=== PATIENT | female | born 1995 | race American Indian/Alaskan Native ===

== ENCOUNTER 2016-09-16 15:54 | Emergency (ER) | payer SELFPAY ==
--- NOTE | 2016-09-16 16:09 | Emergency Department Report ---
Chief Complaint: Skin/Abscess/Foreign Body Stated Complaint: LEFT LEG PAIN Time Seen by Provider: 09/16/16 16:06 - HPI History of Present Illness: PT c/o bump to L buttocks x 6 days PT states it has been draining - ROS Review of Systems: -fever - chill - nausea - vomiting - Exam Physical Exam: PT looks well, non toxic. MSE screening note: Focused history and physical exam performed. Due to findings the following was ordered: room for exam ED Disposition for MSE Condition: Stable
[2016-09-16 16:13] VITALS: BP 132/89
[2016-09-16] MEDS ORDERED: MARCAINE-EPI 0.5%-1:200,000 INFILTRATI ONE (17:24)
[2016-09-16] MEDS ORDERED: MOTRIN PO ONE (17:24)
[2016-09-16] MEDS ORDERED: BOOSTRIX IM ONE (17:52)
--- NOTE | 2016-09-16 19:05 | Emergency Department Report ---
Entered by PUSHPA JENNINGS, acting as scribe for ANASTASIYA BERMAN NP. - General Chief complaint: Skin/Abscess/Foreign Body Stated complaint: LEFT LEG PAIN Time Seen by Provider: 09/16/16 16:06 Source: patient Mode of arrival: Ambulatory Limitations: No Limitations - History of Present Illness Initial comments: This is a 21 y/o female, nontoxic, well nourished in appearance, no acute signs of distress presents with an area of boil to the left buttocks region that started 6 days and has gradually worsened since onset. Sx include noted minimal pus and drainage but pt denies n/v, fever, chills, SWEET, abd pain, chest pain, SOB , numbness or tingling. Pt notes taking ibuprofen [employer] today. She states using a warm rag to the affected area relieving some of the pressure and drainage. No additional Sx. NKDA. MOE complaint: abscess/boil -: days(s) (6) Tetanus Up to Date: no Location: buttocks Severity: mild Severity scale (0 -10): 4 Quality: constant Consistency: constant Improves with: none Worsens with: none Context: none Associated symptoms: denies other symptoms, other (drainage) Treatments Prior to Arrival: none - Related Data Previous Rx's Medication Instructions Recorded Last Taken Type Cephalexin [Keflex] 500 mg PO Q8HR 5 Days 09/16/16 Unknown Rx Ibuprofen [Motrin 600 MG tab] 600 mg PO Q8H PRN #15 tablet 09/16/16 Unknown Rx Abscess Boil HPI - HPI Chief Complaint: Skin/Abscess/Foreign Body Stated Complaint: LEFT LEG PAIN Time Seen by Provider: 09/16/16 16:06 Home Medications: Previous Rx's Medication Instructions Recorded Last Taken Type Cephalexin [Keflex] 500 mg PO Q8HR 5 Days 09/16/16 Unknown Rx Ibuprofen [Motrin 600 MG tab] 600 mg PO Q8H PRN #15 tablet 09/16/16 Unknown Rx ED Review of Systems Comment: All other systems reviewed and negative Constitutional: denies: chills, fever Eyes: denies: eye pain, eye discharge, vision change ENT: denies: ear pain, throat pain Respiratory: denies: cough, shortness of breath, wheezing Cardiovascular: denies: chest pain, palpitations Endocrine: no symptoms reported Gastrointestinal: denies: abdominal pain, nausea, diarrhea Genitourinary: denies: urgency, dysuria, discharge Musculoskeletal: denies: back pain, joint swelling, arthralgia Skin: other (area of boil with fluctuance on left buttocks region). denies: rash, lesions Neurological: denies: headache, weakness, paresthesias Psychiatric: denies: anxiety, depression Hematological/Lymphatic: denies: easy bleeding, easy bruising ED Past Medical Hx - Past Medical History Previous Medical History?: No - Surgical History Past Surgical History?: No - Social History Smoking Status: Never Smoker Substance Use Type: Marijuana - Medications Home Medications: Home Medications Medication Instructions Recorded Confirmed Last Taken Type Cephalexin [Keflex] 500 mg PO Q8HR 5 Days 09/16/16 Unknown Rx Ibuprofen [Motrin 600 MG tab] 600 mg PO Q8H PRN #15 tablet 09/16/16 Unknown Rx ED Physical Exam - General Limitations: No Limitations General appearance: alert, in no apparent distress - Head Head exam: Present: atraumatic, normocephalic - Eye Eye exam: Present: normal appearance, PERRL, EOMI Pupils: Present: normal accommodation - ENT ENT exam: Present: normal exam, normal orophraynx, mucous membranes moist, TM's normal bilaterally, normal external ear exam. Absent: mucous membranes dry - Neck Neck exam: Present: normal inspection, full ROM. Absent: tenderness, meningismus, lymphadenopathy, thyromegaly - Respiratory Respiratory exam: Present: normal lung sounds bilaterally. Absent: respiratory distress, wheezes, rales, rhonchi, stridor - Cardiovascular Cardiovascular Exam: Present: regular rate, normal rhythm, normal heart sounds. Absent: bradycardia, tachycardia, irregular rhythm, systolic murmur, diastolic murmur, rubs, gallop - GI/Abdominal GI/Abdominal exam: Present: soft, normal bowel sounds. Absent: distended, tenderness, guarding, rebound, rigid, diminished bowel sounds, mass, bruit - Extremities Exam Extremities exam: Present: normal inspection, full ROM, normal capillary refill. Absent: tenderness, pedal edema, joint swelling, calf tenderness - Back Exam Back exam: Present: normal inspection, full ROM. Absent: tenderness, CVA tenderness (R), CVA tenderness (L), muscle spasm, paraspinal tenderness, vertebral tenderness, rash noted - Neurological Exam Neurological exam: Present: alert, oriented X3, CN II-XII intact, normal gait, reflexes normal. Absent: abnormal gait, motor sensory deficit - Psychiatric Psychiatric exam: Present: normal affect, normal mood - Skin Skin exam: Present: warm, dry, intact, normal color, other (4 cm area of abscess with fluctuance on the left buttocks region. ) ED Course Vital Signs 09/16/16 16:08 Temperature 98.2 F Pulse Rate 106 H Respiratory 18 Rate Blood Pressure 132/89 O2 Sat by Pulse 100 Oximetry - I & D Medial Buttocks Type of Procedure: Complex Site: Medial left buttocks Blade Size: 11 I & D Procedure: betadine prep, sterile drapes applied, sterile dressing applied Progress: Under sterile procedure, I used Betadine to cleanse the area. I then used 4 x 4 to try and clean the area. I used 25-gauge 5/8 hypo-to inject 0.5% Marcaine with epi 1-200,000 with total volume of 6 mL. I then used Betadine again cleansed area. I then used an 11 blade to make a decision of 1 cm to the site. About 10 mL of purulent drainage noted. I then used a hemostat to break down the abscess. I used 0.9% saline to flush the area with a total cc of 40. I then used 1/2 iodoform packing. A sterile 4 x 4 with tape has in place as dressing. Patient's are well with no acute signs of distress or complications noted. ED Medical Decision Making - Medical Decision Making Ed course: This is a 21-year-old female that presents with left buttock abscess 1- after my physical exam, and incision and drainage has been performed and 1/2 iodoform packing has been placed. Patient was instructed to return to the emergency room in 2 days for packing removal. 2- patient received Keflex of discharge and was instructed to finish full course of the buttocks as prescribed. 3- patient was instructed to follow up with her primary care doctor in 3-5 days or if symptoms such as fever, chills, chest pain, shortness of breath, numbness or tingling reported back to emergency rest was possible. 4- at time time of discharge, the patient does not seem toxic or ill in appearance. No acute signs of distress noted. Patient agrees to discharge treatment plan of care. No further questions noted by the patient. ED Disposition Clinical Impression: Abscess Disposition: DC-01 TO HOME OR SELFCARE Is pt being admited?: No Does the pt Need Aspirin: No Condition: Stable Instructions: Acute Wound Care (ED), Incision and Drainage (ED), Cephalexin ( By mouth), Ibuprofen (By mouth) Additional Instructions: Return to the ER in 2 days for a packing removal and reassessment of the abscess. Follow-up with her primary care doctor in 3-5 days or if symptoms such as fever , chills, chest pain, shortness of breath, numbness or tingling reported to emergency room as was possible Take full course of antibiotics as prescribed. You may take ibuprofen as prescribed for pain as needed. Prescriptions: Cephalexin [Keflex] 500 mg PO Q8HR 5 Days Ibuprofen [Motrin 600 MG tab] 600 mg PO Q8H PRN #15 tablet PRN Reason: Pain Referrals: PRIMARY CAREMD [Primary Care Provider] - 3-5 Days [facility] [Outside] - 3-5 Days [facility]Note 3[facility] [Outside] - 3-5 Days SHANIQUA OTT JR, MD [Staff Physician] - 3-5 Days Forms: Work/School Release Form(ED) This documentation as recorded by the MICHAELA davis RYAN,accurately reflects the service I personally performed and the decisions made by ,ANASTASIYA BERMAN, THERAPEUTIC DIETITIAN.
== END 2016-09-16 19:04 | disposition home or self-care (01) ==
LOC: ED 15:54
DX: L02.31 Cutaneous abscess of buttock (principal); F12.90 Cannabis use, unspecified, uncomplicated
CPT/HCPCS: 90471; 90715

== ENCOUNTER 2016-09-18 09:46 | Emergency (ER) | payer SELFPAY ==
[2016-09-18 10:04] VITALS: BP 103/64
--- NOTE | 2016-09-18 11:00 | Emergency Department Report ---
Suture/Staple Removal - HPI Chief Complaint: Laceration/Recheck/Suture Stated Complaint: PACKING REMOVAL Time Seen by Provider: 09/18/16 10:22 When Sutures or [place] Placed: pt had I and D done 2 days ago Wound Location: L buttocks ED Review of Systems ROS: Stated complaint: PACKING REMOVAL Other details as noted in HPI Comment: All other systems reviewed and negative Constitutional: denies: chills, fever Gastrointestinal: denies: abdominal pain, nausea, vomiting Musculoskeletal: other (pain decreased to 1/10. pt states she is feeling better. ) Skin: other (decrease in size of wound ) ED Past Medical Hx - Past Medical History Previous Medical History?: No - Surgical History Past Surgical History?: No - Social History Smoking Status: Never Smoker Substance Use Type: Alcohol, Marijuana - Medications Home Medications: Home Medications Medication Instructions Recorded Confirmed Last Taken Type Cephalexin [Keflex] 500 mg PO Q8HR 5 Days 09/16/16 09/18/16 09/18/16 08:00 Rx Ibuprofen [Motrin 600 MG tab] 600 mg PO Q8H PRN #15 tablet 09/16/16 09/18/16 08:00 Rx Mupirocin [Bactroban 2%] 1 applic TP TID 5 Days 09/18/16 Unknown Rx Suture Removal Exam - Exam General: Vital signs noted. No distress. Alert and acting appropriately. PT looks well, non toxic. Pt has packing in place to L buttocks. No surrounding erythema or tenderness. Packing removed. No active drainage from I and D site. Wound: Yes Drainage (small amount on packing ), No Pathologic Erythema, No Tenderness, No Pus Other Systems: All other systems reviewed and are unremarkable. ED Course Vital Signs 09/18/16 10:01 Temperature 97.7 F Pulse Rate 107 H Respiratory 17 Rate Blood Pressure 103/64 O2 Sat by Pulse 100 Oximetry - Reevaluation(s) Reevaluation #1: 09/18/16 11:00 PT given verbal instructions on Bactroban use. PT has no questions at this time. - Pulse Oximetry Interpretation Digit-Finger Initial Pulse Oximetry Readin Actions Taken: none ED Recheck MDM - Differential Diagnosis Cutananeous Abscess reche Critical Care Time: No Critical care attestation.: If time is entered above; I have spent that time in minutes in the direct care of this critically ill patient, excluding procedure time. ED Disposition Clinical Impression: Abscess packing removal Disposition: - TO HOME OR SELFCARE Is pt being admited?: No Does the pt Need Aspirin: No Condition: Stable Instructions: Abscess (ED) Additional Instructions: Wash with OTC hibiclens soap Finish taking your antibiotics Prescriptions: Mupirocin [Bactroban 2%] 1 applic TP TID 5 Days Referrals: PRIMARY CARE, [Primary Care Provider] - 3-5 Days Forms: Work/School Release Form(ED) Time of Disposition: 11:02
== END 2016-09-18 11:08 | disposition home or self-care (01) ==
LOC: ED 09:46
DX: Z48.01 Encounter for change or removal of surgical wound dressing (principal); F12.10 Cannabis abuse, uncomplicated

== ENCOUNTER 2016-12-08 17:41 | Emergency (ER) | payer SELFPAY ==
[2016-12-08 17:51] VITALS: BP 121/78
== END 2016-12-09 | disposition left against medical advice (07) ==
LOC: ED 17:41
DX: L02.31 Cutaneous abscess of buttock (principal); Z53.21 Procedure and treatment not carried out due to patient leaving prior to being seen by health care provider

== ENCOUNTER 2016-12-09 11:39 | Emergency (ER) | payer SELFPAY ==
[2016-12-09 11:49] VITALS: BP 112/74
--- NOTE | 2016-12-09 18:45 | Emergency Department Report ---
Entered by RAN CARRILLO, acting as scribe for NAASTASIYA BERMAN NP. - General Chief complaint: Skin/Abscess/Foreign Body Stated complaint: ABSCESS Time Seen by Provider: 12/09/16 12:27 Source: patient Mode of arrival: Ambulatory Limitations: No Limitations - History of Present Illness Initial comments: This is a 21 y/o female, nontoxic, well nourished in appearance, no acute signs of distress with no significant PMHx presents with an abscess on left buttock area that began 1 day ago. Rates pain an 8/10 in severity, which she describes as aching in quality. Aggravated with sitting and palpation, and alleviated with nothing. Denies any drainage, fever, chills, chest pain, SOB, SWEET or dizziness, numbness, and tingling. Notes she had abscess in same location 1 month ago, which she had drained and completed the prescribed antibiotics. Patient stated sysptoms resolved after medical treatment and I/D but now has come back. Applied OTC topical medication with no relief. NKDA. MOE complaint: abscess/boil Onset/Timin -: days(s) Location: buttocks (LT) Severity: severe Severity scale (0 -10): 8 Quality: aching Consistency: constant Improves with: none Worsens with: palpation, other (sitting) Context: none Associated symptoms: denies other symptoms Treatments Prior to Arrival: OTC topical medication - Related Data Previous Rx's Medication Instructions Recorded Last Taken Type Cephalexin [Keflex] 500 mg PO Q8HR 5 Days 09/16/16 09/18/16 08:00 Rx Ibuprofen [Motrin 600 MG tab] 600 mg PO Q8H PRN #15 tablet 09/16/16 09/18/16 08: 00 Rx Mupirocin [Bactroban 2%] 1 applic TP TID 5 Days 09/18/16 Unknown Rx Amoxicillin/K Clav Tab [Augmentin 1 tab PO Q12HR #20 tab 12/09/16 Unknown Rx 875 mg] Allergies Allergy/AdvReac Type Severity Reaction Status Date / Time SEAFOOD Allergy Swelling Uncoded 09/18/16 10:00 Abscess Boil HPI - HPI Chief Complaint: Skin/Abscess/Foreign Body Stated Complaint: ABSCESS Time Seen by Provider: 12/09/16 12:27 Duration: 1 Day Location: Other (LT buttock) Severity: Severe History: Yes Pain (to affected area on LT buttock), Yes Previous History (to same area on LT buttock), No Fever, No Purulent Drainage, No Numbness, No Foreign Body, No Insect Bite Home Medications: Previous Rx's Medication Instructions Recorded Last Taken Type Cephalexin [Keflex] 500 mg PO Q8HR 5 Days 09/16/16 09/18/16 08:00 Rx Ibuprofen [Motrin 600 MG tab] 600 mg PO Q8H PRN #15 tablet 09/16/16 09/18/16 08: 00 Rx Mupirocin [Bactroban 2%] 1 applic TP TID 5 Days 09/18/16 Unknown Rx Amoxicillin/K Clav Tab [Augmentin 1 tab PO Q12HR #20 tab 12/09/16 Unknown Rx 875 mg] Allergies/Adverse Reactions: Allergies Allergy/AdvReac Type Severity Reaction Status Date / Time SEAFOOD Allergy Swelling Uncoded 09/18/16 10:00 ED Review of Systems Comment: All other systems reviewed and negative Constitutional: denies: chills, fever Eyes: denies: eye pain, eye discharge, vision change ENT: denies: ear pain, throat pain Respiratory: denies: cough, shortness of breath, wheezing Cardiovascular: denies: chest pain, palpitations Endocrine: no symptoms reported Gastrointestinal: denies: abdominal pain, nausea, vomiting, diarrhea Genitourinary: denies: urgency, dysuria, discharge Musculoskeletal: denies: back pain, joint swelling, arthralgia Skin: other (abscess on LT buttock). denies: rash, lesions Neurological: denies: headache, weakness, paresthesias Psychiatric: denies: anxiety, depression Hematological/Lymphatic: denies: easy bleeding, easy bruising ED Past Medical Hx - Past Medical History Previous Medical History?: No - Surgical History Past Surgical History?: No - Family History Family history: no significant - Social History Smoking Status: Current Every Day Smoker Substance Use Type: None - Medications Home Medications: Home Medications Medication Instructions Recorded Confirmed Last Taken Type Cephalexin [Keflex] 500 mg PO Q8HR 5 Days 09/16/16 09/18/16 09/18/16 08:00 Rx Ibuprofen [Motrin 600 MG tab] 600 mg PO Q8H PRN #15 tablet 09/16/16 09/18/16 08:00 Rx Mupirocin [Bactroban 2%] 1 applic TP TID 5 Days 09/18/16 Unknown Rx Amoxicillin/K Clav Tab [Augmentin 1 tab PO Q12HR #20 tab 12/09/16 Unknown Rx 875 mg] ED Physical Exam - General Limitations: No Limitations General appearance: alert, in no apparent distress - Head Head exam: Present: atraumatic, normocephalic - Eye Eye exam: Present: normal appearance, PERRL, EOMI. Absent: scleral icterus, conjunctival injection, nystagmus, periorbital swelling, periorbital tenderness Pupils: Present: normal accommodation - ENT ENT exam: Present: normal exam, normal orophraynx, mucous membranes moist, TM's normal bilaterally, normal external ear exam - Neck Neck exam: Present: normal inspection, full ROM. Absent: tenderness, meningismus, lymphadenopathy, thyromegaly - Respiratory Respiratory exam: Present: normal lung sounds bilaterally. Absent: respiratory distress, wheezes, rales, rhonchi, stridor, chest wall tenderness, accessory muscle use, decreased breath sounds, prolonged expiratory - Cardiovascular Cardiovascular Exam: Present: regular rate, normal rhythm, normal heart sounds. Absent: bradycardia, tachycardia, irregular rhythm, systolic murmur, diastolic murmur, rubs, gallop - GI/Abdominal GI/Abdominal exam: Present: soft, normal bowel sounds. Absent: distended, tenderness, guarding, rebound, rigid - Rectal Rectal exam: Present: deferred - Extremities Exam Extremities exam: Present: normal inspection, full ROM, normal capillary refill. Absent: tenderness, pedal edema, joint swelling, calf tenderness - Back Exam Back exam: Present: normal inspection, full ROM. Absent: tenderness, CVA tenderness (R), CVA tenderness (L), muscle spasm, paraspinal tenderness, vertebral tenderness, rash noted - Neurological Exam Neurological exam: Present: alert, oriented X3, CN II-XII intact, normal gait, reflexes normal. Absent: motor sensory deficit - Psychiatric Psychiatric exam: Present: normal affect, normal mood - Skin Skin exam: Present: warm, dry, intact, other (1 cm nodule on left buttocks region with no fluctuance, induration, or drainage present.). Absent: rash ED Course Vital Signs 12/09/16 11:44 Temperature 98.9 F Pulse Rate 84 Respiratory 16 Rate Blood Pressure 112/74 O2 Sat by Pulse 100 Oximetry - Reevaluation(s) Reevaluation #1: 12/09/16 13:55 Patient is speaking in full sentences with no signs of distress noted. ED Medical Decision Making - Medical Decision Making This is a 21-year-old female that presents with a non-abscess nodule. Patient is stable and was examined myself. The abscesses there is no induration or fluctuance. I instructed patient that she needs antibiotics and that if an abscess or increased swelling develops she needs to come back to have the abscess lanced. Patient received Augmentin at the time of discharge. At time time of discharge, the patient does not seem toxic or ill in appearance. No acute signs of distress noted. Patient agrees to discharge treatment plan of care. No further questions noted by the patient. ED Disposition Clinical Impression: Boil of buttock Disposition: DC-01 TO HOME OR SELFCARE Is pt being admited?: No Does the pt Need Aspirin: No Condition: Stable Instructions: Amoxicillin/Clavulanate Potassium (By mouth) Additional Instructions: Follow-up with a primary care doctor 3-5 days or if symptoms such as increased swelling, pus, drainage, or worsening symptoms need to return as soon as possible to the emergency room and may have an incision and drainage. Prescriptions: Amoxicillin/K Clav Tab [Augmentin 875 mg] 1 tab PO Q12HR #20 tab Referrals: PRIMARY CARE, [Primary Care Provider] - 3-5 Days RAY VALENTINE MD [Staff Physician] - 3-5 Days [facility] [Outside] - 3-5 Days [facility]Note 3[facility] [Outside] - 3-5 Days Forms: Work/School Release Form(ED) This documentation as recorded by the GERARDO davis JASMINE,accurately reflects the service I personally performed and the decisions made by me,ANASTASIYA BERMAN, EBONIE.
== END 2016-12-09 14:21 | disposition home or self-care (01) ==
LOC: ED 11:39
DX: L02.31 Cutaneous abscess of buttock (principal); L02.32 Furuncle of buttock; F17.200 Nicotine dependence, unspecified, uncomplicated
CPT/HCPCS: 99281

== ENCOUNTER 2016-12-12 09:56 | Emergency (ER) | payer SELFPAY ==
[2016-12-12 11:09] VITALS: BP 117/75
[2016-12-12] MEDS ORDERED: NORCO 5/325 PO ONE (11:44)
[2016-12-12] MEDS ORDERED: XYLOCAINE 1% 20 mL INFILTRATI ONE (11:44)
--- NOTE | 2016-12-12 11:46 | Emergency Department Report ---
Abscess Boil HPI - HPI Chief Complaint: Skin/Abscess/Foreign Body Stated Complaint: LEFT BUTTOCK ABCESS Time Seen by Provider: 12/12/16 11:23 Location: Other (BUTTOCKS) Severity: Mild History: Yes Pain, Yes Previous History, No Fever, No Purulent Drainage, No Numbness, No Foreign Body, No Insect Bite Home Medications: Previous Rx's Medication Instructions Recorded Last Taken Type Cephalexin [Keflex] 500 mg PO Q8HR 5 Days 09/16/16 09/18/16 08:00 Rx Ibuprofen [Motrin 600 MG tab] 600 mg PO Q8H PRN #15 tablet 09/16/16 09/18/16 08: 00 Rx Mupirocin [Bactroban 2%] 1 applic TP TID 5 Days 09/18/16 Unknown Rx Amoxicillin/K Clav Tab [Augmentin 1 tab PO Q12HR #20 tab 12/09/16 Unknown Rx 875 mg] Cephalexin [Keflex] 500 mg PO Q12HR #20 cap 12/12/16 Unknown Rx traMADol [Ultram] 50 mg PO Q6HR PRN #10 tablet 12/12/16 Unknown Rx Allergies/Adverse Reactions: Allergies Allergy/AdvReac Type Severity Reaction Status Date / Time SEAFOOD Allergy Swelling Uncoded 12/12/16 11:09 ED Review of Systems ROS: Stated complaint: LEFT BUTTOCK ABCESS Other details as noted in HPI Comment: All other systems reviewed and negative Constitutional: no symptoms reported, see HPI Eyes: as per HPI ENT: as per HPI Respiratory: no symptoms reported, see HPI Cardiovascular: as per HPI. denies: chest pain, palpitations, dyspnea on exertion, orthopnea Endocrine: no symptoms reported, see HPI. denies: excessive sweating, flushing , intolerance to cold, intolerance to heat Gastrointestinal: as per HPI. denies: abdominal pain, nausea, vomiting Genitourinary: as per HPI. denies: urgency, dysuria Musculoskeletal: as per HPI. denies: back pain Skin: as per HPI, lesions. denies: rash Neurological: as per HPI. denies: headache, weakness Psychiatric: as per HPI. denies: anxiety, depression Hematological/Lymphatic: as per HPI. denies: easy bleeding ED Past Medical Hx - Past Medical History Previous Medical History?: Yes Additional medical history: ABSCESS SAME SPOT - Surgical History Past Surgical History?: No - Social History Smoking Status: Current Every Day Smoker Substance Use Type: None - Medications Home Medications: Home Medications Medication Instructions Recorded Confirmed Last Taken Type Cephalexin [Keflex] 500 mg PO Q8HR 5 Days 09/16/16 09/18/16 09/18/16 08:00 Rx Ibuprofen [Motrin 600 MG tab] 600 mg PO Q8H PRN #15 tablet 09/16/16 09/18/16 08:00 Rx Mupirocin [Bactroban 2%] 1 applic TP TID 5 Days 09/18/16 Unknown Rx Amoxicillin/K Clav Tab [Augmentin 1 tab PO Q12HR #20 tab 12/09/16 Unknown Rx 875 mg] Cephalexin [Keflex] 500 mg PO Q12HR #20 cap 12/12/16 Unknown Rx traMADol [Ultram] 50 mg PO Q6HR PRN #10 tablet 12/12/16 Unknown Rx ED Abscess Boil Physical Exam - Exam General: Vital signs noted. No distress. Alert and acting appropriately. Size: 3 cm Exam: Yes Tenderness, Yes Fluctuance, Yes Surrounding Cellulites/Erythema, Yes Normal Neurologic Exam, Yes Normal Circulation, No Lymphangitis, No Crepitation , No Heart Murmur I & D Note - I & D Note I & D Note: I/D with 3 ml lido 2% induration. straight blade. large amount drainage. wound cleaned. dressing applied ED Course Vital Signs 12/12/16 11:06 Temperature 98.4 F Pulse Rate 108 H Respiratory 16 Rate Blood Pressure 117/75 O2 Sat by Pulse 100 Oximetry - Reevaluation(s) Reevaluation #1: 12/12/16 12:28 vss non ill non toxic non septic appearing no fever i/d home w gen surg follow up Critical care attestation.: If time is entered above; I have spent that time in minutes in the direct care of this critically ill patient, excluding procedure time. ED Medical Decision Making - Medical Decision Making abscess drained to gen surg change anbx to keflex ED Disposition Clinical Impression: Abscess Disposition: DC-01 TO HOME OR SELFCARE Is pt being admited?: No Does the pt Need Aspirin: No Condition: Stable Instructions: Abscess (ED) Additional Instructions: rest fluids soak for 20 minutes 3 times per day in warm bath of epsom salts stop the amoxicillin medication take antibiotic given today motrin or tylenol for pain or fever ultram for severe pain follow up general surgery for definitive treatment Referrals: PRIMARY CARE, [Primary Care Provider] - 3-5 Days KRISTI ADAMS DO [Staff Physician] - 3-5 Days Time of Disposition: 12:26
[2016-12-12] MEDS ORDERED: XYLOCAINE 1% MPF 5 mL INFILTRATI ONE (11:47)
[2016-12-12] MEDS ORDERED: ROCEPHIN IM ONE (11:47)
== END 2016-12-12 13:21 | disposition home or self-care (01) ==
LOC: ED 09:56
DX: L02.31 Cutaneous abscess of buttock (principal)
CPT/HCPCS: 10060; 96372; 99282; J0696

== ENCOUNTER 2017-04-29 15:07 | Emergency (ER) | payer SELFPAY ==
[2017-04-29] MEDS ORDERED: CLEOCIN IM ONE (19:01)
[2017-04-29] MEDS ORDERED: MARCAINE 0.5% INFILTRATI ONE (19:01)
[2017-04-29] MEDS ORDERED: PERCOCET 5/325 PO ONE (19:01)
--- NOTE | 2017-04-29 19:01 | Emergency Department Report ---
- General Chief complaint: Skin/Abscess/Foreign Body Stated complaint: ABSCESS Time Seen by Provider: 04/29/17 18:19 Source: patient, family Mode of arrival: Ambulatory Limitations: No Limitations - History of Present Illness Initial comments: Patient reports abscess to left buttocks. She said this is going on for 4 days and denies any drainage. She says she has had abscess to this area several times. Patient does not have a primary care physician. Pain is 8 out of 10 and throbbing in worse with sitting and walking/touch and better with resting. [id number] pain medication taken without any relief. Patient reports that she got a tetanus vaccine last year. Patient was here on 12/12/2016 for similar problems. Denies any respiratory problems. MD complaint: abscess/boil Onset/Timin -: days(s) Tetanus Up to Date: yes Location: buttocks (left) Severity: severe Severity scale (0 -10): 8 Quality: constant, other (throbbing ) Consistency: constant Improves with: immobilization, rest Worsens with: palpation, movement Context: other (recurrent abscess) Associated symptoms: denies other symptoms Treatments Prior to Arrival: other ([id number] pain medication) - Related Data Previous Rx's Medication Instructions Recorded Last Taken Type Cephalexin [Keflex] 500 mg PO Q8HR 5 Days cap 09/16/16 09/18/16 08:00 Rx Mupirocin [Bactroban 2%] 1 applic TP TID 5 Days tube 09/18/16 Unknown Rx Amoxicillin/K Clav Tab [Augmentin 1 tab PO Q12HR #20 tab 12/09/16 Unknown Rx 875 mg] Cephalexin [Keflex] 500 mg PO Q12HR #20 cap 12/12/16 Unknown Rx traMADol [Ultram] 50 mg PO Q6HR PRN #10 tablet 12/12/16 Unknown Rx HYDROcodone/APAP 7.5-325 [[place] 1 each PO Q6HR PRN #12 tablet 04/29/17 Unknown Rx 7.5/325] Ibuprofen [Motrin 600 MG tab] 600 mg PO Q8H PRN #15 tablet 04/29/17 Unknown Rx Sulfamethoxazole/Trimethoprim 1 each PO Q12H 10 Days #20 tablet 04/29/17 Unknown Rx [Bactrim DS TAB] Allergies Allergy/AdvReac Type Severity Reaction Status Date / Time SEAFOOD Allergy Swelling Uncoded 12/12/16 11:09 Abscess Boil HPI - HPI Chief Complaint: Skin/Abscess/Foreign Body Stated Complaint: ABSCESS Time Seen by Provider: 04/29/17 18:19 Home Medications: Previous Rx's Medication Instructions Recorded Last Taken Type Cephalexin [Keflex] 500 mg PO Q8HR 5 Days cap 09/16/16 09/18/16 08:00 Rx Mupirocin [Bactroban 2%] 1 applic TP TID 5 Days tube 09/18/16 Unknown Rx Amoxicillin/K Clav Tab [Augmentin 1 tab PO Q12HR #20 tab 12/09/16 Unknown Rx 875 mg] Cephalexin [Keflex] 500 mg PO Q12HR #20 cap 12/12/16 Unknown Rx traMADol [Ultram] 50 mg PO Q6HR PRN #10 tablet 12/12/16 Unknown Rx HYDROcodone/APAP 7.5-325 [[place] 1 each PO Q6HR PRN #12 tablet 04/29/17 Unknown Rx 7.5/325] Ibuprofen [Motrin 600 MG tab] 600 mg PO Q8H PRN #15 tablet 04/29/17 Unknown Rx Sulfamethoxazole/Trimethoprim 1 each PO Q12H 10 Days #20 tablet 04/29/17 Unknown Rx [Bactrim DS TAB] Allergies/Adverse Reactions: Allergies Allergy/AdvReac Type Severity Reaction Status Date / Time SEAFOOD Allergy Swelling Uncoded 12/12/16 11:09 ED Review of Systems ROS: Stated complaint: ABSCESS Other details as noted in HPI Comment: All other systems reviewed and negative Constitutional: no symptoms reported Respiratory: no symptoms reported Cardiovascular: denies: chest pain, palpitations, edema, syncope Gastrointestinal: denies: abdominal pain, nausea, vomiting, diarrhea, constipation Genitourinary: denies: urgency, dysuria, frequency, hematuria, discharge Musculoskeletal: denies: back pain, joint swelling, arthralgia, myalgia Skin: other (painful abscess to left buttocks) Neurological: denies: headache ED Past Medical Hx - Past Medical History Previous Medical History?: Yes Additional medical history: ABSCESS SAME SPOT - Surgical History Past Surgical History?: No - Family History Family history: no significant - Social History Smoking Status: Current Every Day Smoker Substance Use Type: None - Medications Home Medications: Home Medications Medication Instructions Recorded Confirmed Last Taken Type Cephalexin [Keflex] 500 mg PO Q8HR 5 Days cap 09/16/16 09/18/16 09/18/16 08:00 Rx Mupirocin [Bactroban 2%] 1 applic TP TID 5 Days tube 09/18/16 Unknown Rx Amoxicillin/K Clav Tab [Augmentin 1 tab PO Q12HR #20 tab 12/09/16 Unknown Rx 875 mg] Cephalexin [Keflex] 500 mg PO Q12HR #20 cap 12/12/16 Unknown Rx traMADol [Ultram] 50 mg PO Q6HR PRN #10 tablet 12/12/16 Unknown Rx HYDROcodone/APAP 7.5-325 [[place] 1 each PO Q6HR PRN #12 tablet 04/29/17 Unknown Rx 7.5/325] Ibuprofen [Motrin 600 MG tab] 600 mg PO Q8H PRN #15 tablet 04/29/17 Unknown Rx Sulfamethoxazole/Trimethoprim 1 each PO Q12H 10 Days #20 tablet 04/29/17 Unknown Rx [Bactrim DS TAB] ED Physical Exam - General Limitations: No Limitations General appearance: alert, in no apparent distress - Head Head exam: Present: atraumatic, normocephalic, normal inspection - Eye Eye exam: Present: normal appearance, PERRL, EOMI Pupils: Present: normal accommodation - ENT ENT exam: Present: normal exam, normal orophraynx, mucous membranes moist - Neck Neck exam: Present: normal inspection, full ROM. Absent: tenderness, meningismus, lymphadenopathy, thyromegaly - Respiratory Respiratory exam: Present: normal lung sounds bilaterally. Absent: respiratory distress, chest wall tenderness - Cardiovascular Cardiovascular Exam: Present: normal rhythm, tachycardia, normal heart sounds. Absent: systolic murmur, diastolic murmur - GI/Abdominal GI/Abdominal exam: Present: soft, normal bowel sounds. Absent: distended, tenderness, guarding, rebound, rigid - Extremities Exam Extremities exam: Present: normal inspection, full ROM, normal capillary refill , other (no clubbing, cyanosis or edema. +2 pulses to all extremities. No neurovascular compromise). Absent: tenderness, pedal edema, joint swelling, calf tenderness - Back Exam Back exam: Present: normal inspection, full ROM, other (ambulates without any difficulties). Absent: tenderness, CVA tenderness (R), CVA tenderness (L), muscle spasm, paraspinal tenderness, vertebral tenderness, rash noted - Neurological Exam Neurological exam: Present: alert, oriented X3, normal gait - Psychiatric Psychiatric exam: Present: normal affect, normal mood - Skin Skin exam: Present: warm, dry, intact, normal color, other (abscess to left buttocks) - Expanded Skin Exam Expanded Type of lesion: Present: abscess Distribution of rash: other (left buttocks) Description of rash: Present: size (2 x 2 centimeter ), tenderness, swelling, fluctuant, indurated. Absent: erythematous, bullous, petechial, purpuic, discharge ED Course Vital Signs 04/29/17 04/29/17 15:21 21:23 Temperature 99.4 F 98.2 F Pulse Rate 110 H 88 Respiratory 18 16 Rate Blood Pressure 123/74 Blood Pressure 113/56 [Right] O2 Sat by Pulse 100 99 Oximetry - Reevaluation(s) Reevaluation #1: 04/29/17 21:08 Patient receive oxycodone 5/325 mg 2 tablets, clindamycin 600 mg IM. Incision and drainage of abscess to left buttocks completed. See procedure note for detail. She'll also given Bactrim DS 1 tablet prior to discharge. - I & D Left Buttocks Type of Procedure: Complex Site: left buttocks medial, anterolateral Blade Size: 11 I & D Procedure: betadine prep, sterile drapes applied, sterile dressing applied , gauze wick placed Progress: Incision and drainage of abscess left buttocks: Abscess site cleansed with iodine and normal saline. 5 mL of Marcaine 0.5% injected at the site. #11 blade used to make a small incision. Copious amount of malodorous drainage from site. Packing in place to site and covered with dry dressing. Patient tolerated procedure well and she is to return in 4 days for evaluation. ED Medical Decision Making - Medical Decision Making ED course: Patient with a recurrent abscess to left buttocks and was last here on 12/12/2016 for incision and drainage. She says she has had this current abscess for 4 days. Patient with low-grade fever and heart rate at 110 on presentation to the emergency room. She was given Percocet 5/325 2 tablets, clindamycin 600 mg IM. Patient tetanus vaccine is up-to-date. Incision and drainage procedure done please refer to procedure note for detail. Given Bactrim DS 1 tablet prior to discharge and will be placed on Bactrim DS for 10 days. I discussed with patient that she'll need to apply warm compresses to affected area 3-4 times a day to facilitate softening of indurated areas and allow drainage. I discussed with her that she needs to keep affected area clean and dry and to leave packing and place until she returns. Patient discharged home with prescription for [place] and Bactrim DS and instructed to return to the emergency room in 4 days for reevaluation. She was given discharge instructions and acute wound care. She does not have a primary care physician so referred her to [facility] for primary care. Critical care attestation.: If time is entered above; I have spent that time in minutes in the direct care of this critically ill patient, excluding procedure time. ED Disposition Clinical Impression: Abscess of left buttock, Encounter for incision and drainage procedure Disposition: TO HOME OR SELFCARE Is pt being admited?: No Does the pt Need Aspirin: No Condition: Stable Instructions: Abscess Incision and Drainage (ED), Acute Wound Care (ED) Additional Instructions: Take antibiotic as prescribed Follow-up with your primary care physician in 2 to 3 days days Keep affected area clean and dry. Followed discharge instruction on acute wound care Please return to the emergency room in 4 days for evaluation of wound and possible removal of packing. Please return to emergency room if you develop increasing redness, streaking, fever, difficulty moving in and the left forearm and increase in pain. Prescriptions: HYDROcodone/APAP 7.5-325 [[place] 7.5/325] 1 each PO Q6HR PRN #12 tablet PRN Reason: Pain, Moderate (4-6) Ibuprofen [Motrin 600 MG tab] 600 mg PO Q8H PRN #15 tablet PRN Reason: Pain/Fever Sulfamethoxazole/Trimethoprim [Bactrim DS TAB] 1 each PO Q12H 10 Days #20 tablet Referrals: [facility] [Outside] - 2-3 Days return to, emergency room [Other] - 05/03/17 Forms: Work/School Release Form(ED)
[2017-04-29] MEDS ORDERED: BACTRIM DS PO ONE (20:54)
[2017-04-29 21:24] VITALS: BP 113/56
== END 2017-04-29 21:25 | disposition home or self-care (01) ==
LOC: ED 15:07
DX: L02.31 Cutaneous abscess of buttock (principal); F17.200 Nicotine dependence, unspecified, uncomplicated; Z91.013 Allergy to seafood
CPT/HCPCS: 96372; 99282

== ENCOUNTER 2017-05-03 16:24 | Emergency (ER) | payer SELFPAY ==
[2017-05-03 21:46] VITALS: BP 109/64
--- NOTE | 2017-05-03 23:29 | Emergency Department Report ---
HPI - General Chief Complaint: Laceration/Recheck/Suture Time Seen by Provider: 05/03/17 23:23 - HPI HPI: 22-year-old female presents with wound packing removal and recheck. Patient states she got an abscess I&D 2 days ago here. She denies fevers/chills/90s has vomiting since any of the symptoms. ED Past Medical Hx - Past Medical History Additional medical history: ABSCESS SAME SPOT - Social History Smoking Status: Never Smoker Substance Use Type: None - Medications Home Medications: Home Medications Medication Instructions Recorded Confirmed Last Taken Type Cephalexin [Keflex] 500 mg PO Q8HR 5 Days cap 09/16/16 09/18/16 09/18/16 08:00 Rx Mupirocin [Bactroban 2%] 1 applic TP TID 5 Days tube 09/18/16 Unknown Rx Amoxicillin/K Clav Tab [Augmentin 1 tab PO Q12HR #20 tab 12/09/16 Unknown Rx 875 mg] Cephalexin [Keflex] 500 mg PO Q12HR #20 cap 12/12/16 Unknown Rx traMADol [Ultram] 50 mg PO Q6HR PRN #10 tablet 12/12/16 Unknown Rx HYDROcodone/APAP 7.5-325 [[place] 1 each PO Q6HR PRN #12 tablet 04/29/17 Unknown Rx 7.5/325] Ibuprofen [Motrin 600 MG tab] 600 mg PO Q8H PRN #15 tablet 04/29/17 Unknown Rx Sulfamethoxazole/Trimethoprim 1 each PO Q12H 10 Days #20 tablet 04/29/17 Unknown Rx [Bactrim DS TAB] ED Review of Systems ROS: Stated complaint: ABSCESS RECHECK Other details as noted in HPI Constitutional: denies: chills, fever Eyes: denies: eye pain, eye discharge, vision change ENT: denies: ear pain, throat pain Respiratory: denies: cough, shortness of breath, wheezing Cardiovascular: denies: chest pain, palpitations Endocrine: no symptoms reported Gastrointestinal: denies: abdominal pain, nausea, diarrhea Genitourinary: denies: urgency, dysuria, discharge Musculoskeletal: denies: back pain, joint swelling, arthralgia Skin: denies: rash, lesions Neurological: denies: headache, weakness, paresthesias Psychiatric: denies: anxiety, depression Hematological/Lymphatic: denies: easy bleeding, easy bruising Physical Exam - Physical Exam Vital Signs: Vital Signs 05/03/17 21:40 Temperature 97.5 F L Pulse Rate 60 Respiratory 16 Rate Blood Pressure 109/64 O2 Sat by Pulse 100 Oximetry Physical Exam: GENERAL: Alert and oriented x3, no apparent distress, Normal Gait, atraumatic. LUNGS: Symetrical with respiration, No wheezing, no rales or crackles, CTAB. HEART: S1, S2 present, regular rate and rhythm without murmur, no rubs, no gallops. Non tender to palpation BACK: Full range of motion, no spinal tenderness, nontender to palpation. BUTTOCK: Left buttock cheek pack and remote from incision wound., Wound looks moderately and then, no erythema, no swelling, mildly tender to palpation. SKIN: Warm and dry, No lesions, No ulceration or induration present. ED Course Vital Signs 05/03/17 21:40 Temperature 97.5 F L Pulse Rate 60 Respiratory 16 Rate Blood Pressure 109/64 O2 Sat by Pulse 100 Oximetry ED Medical Decision Making - Medical Decision Making 22-year-old female presents with wound check and packing removal ED course: Packing removed, wound cleaned. Patient tolerated procedure well. Wound sterilely draped with gauze. Discussed acute wound care with the Patient. Discussed to follow up with primary care in 3-5 days. Vital signs are stable patient is in acute distress Critical care attestation.: If time is entered above; I have spent that time in minutes in the direct care of this critically ill patient, excluding procedure time. ED Disposition Clinical Impression: Visit for wound check Disposition: [id number] TO HOME OR SELFCARE Is pt being admited?: No Does the pt Need Aspirin: No Condition: Stable Instructions: Acute Wound Care (ED) Additional Instructions: Make sure to follow up with the primary care physician as discussed. Take all your medications as you've been prescribed. If you have any worsening symptoms or develop new symptoms please return to ED immediately. Referrals: FLAKITA CASTILLO MD [Primary Care Provider] - 3-5 Days [facility] [Outside] - 3-5 Days [facility] [Outside] - 3-5 Days Forms: Work/School Release Form(ED)
== END 2017-05-04 00:04 | disposition home or self-care (01) ==
LOC: ED 16:24
DX: Z48.02 Encounter for removal of sutures (principal)